=== PATIENT | female | born 1970 | race Caucasian/White ===

== ENCOUNTER 2024-05-22 10:28 | Outpatient (CLI) | payer BC, SELFPAY ==
--- NOTE | 2024-05-22 10:35 | XR_ITS ---
FINAL REPORT CLINICAL HISTORY: PAIN states hx of sprain. c/o right foot pain FINDINGS: Right foot Three views were obtained. There is a small ossific fragment measuring 3 mm in greatest dimension between proximal portions of the 1st and 2nd metatarsals. The donor site is unclear, likely chronic. Underlying Lisfranc injury is not entirely excluded. IMPRESSION: Small ossific fragment between the 1st and 2nd metatarsals, likely chronic. Underlying Lisfranc injury is not excluded. Reviewed, Interpreted and Dictated by Wade Humphrey MD Transcribed by Tia Billy Authenticated and [facility]
== END 2024-05-22 23:59 | disposition home or self-care (01) ==
LOC: RAD 10:32
PROVIDERS: PCP Physician Assistant; Visit Provider Physician Assistant
DX: M79.671 Pain in right foot (principal)
CPT/HCPCS: 73630

== ENCOUNTER 2024-05-29 15:30 | Outpatient (CLI) | payer BC, SELFPAY ==
--- NOTE | 2024-05-29 15:34 | XR_ITS ---
FINAL REPORT CLINICAL HISTORY: Foot Pain FINDINGS: Left foot Three views were obtained. There is no acute fracture or dislocation. There are minimal degenerative changes of the midfoot. Pes planus deformity is identified. No soft tissue abnormality is identified. IMPRESSION: No acute process. Reviewed, Interpreted and Dictated by Liz Chavis MD Transcribed by Tia Billy Authenticated and [facility]
--- NOTE | 2024-05-29 15:34 | XR_ITS ---
FINAL REPORT CLINICAL HISTORY: Ankle Pain FINDINGS: Right ankle Three views were obtained. There is no acute fracture or dislocation. Mild degenerative changes are present. No soft tissue abnormality is identified. IMPRESSION: No acute process. Reviewed, Interpreted and Dictated by Liz Chavis MD Transcribed by Tia Billy Authenticated and [facility]
--- NOTE | 2024-05-29 15:34 | XR_ITS ---
FINAL REPORT CLINICAL HISTORY: Foot Pain COMPARISON: 05/22/2024 FINDINGS: Right foot Three views were obtained. There is no acute fracture or dislocation. Pes planus deformity is identified. There are degenerative changes of the midfoot. Again identified is a small bony fragment along the lateral 1st metatarsal base. No soft tissue abnormality is identified. IMPRESSION: No significant change. Reviewed, Interpreted and Dictated by Liz Chavis MD Transcribed by Tia Billy Authenticated and [facility]
== END 2024-05-29 23:59 | disposition home or self-care (01) ==
LOC: RAD 15:32
PROVIDERS: PCP Physician Assistant; Visit Provider Podiatrist
DX: M79.671 Pain in right foot (principal); M79.672 Pain in left foot; M25.571 Pain in right ankle and joints of right foot
CPT/HCPCS: 73610; 73630

== ENCOUNTER 2024-06-19 10:41 | Outpatient (CLI) | payer BC, SELFPAY ==
--- NOTE | 2024-06-19 10:46 | XR_ITS ---
FINAL REPORT CLINICAL HISTORY: Ankle Pain FALL IN APRIL COMPARISON: 05/29/2024 FINDINGS: RIGHT ANKLE 3 views of the right ankle were obtained. There is no acute fracture or dislocation. The mortise is intact. Visualized joint spaces are normally aligned. Soft tissues are unremarkable. IMPRESSION: No acute bony abnormality. Reviewed, Interpreted and Dictated by Wade Humphrey MD Transcribed by Nguyen Interiano Authenticated and [facility]
--- NOTE | 2024-06-19 10:46 | XR_ITS ---
FINAL REPORT CLINICAL HISTORY: Foot Pain FALL IN APRIL COMPARISON: 05/29/2024 FINDINGS: RIGHT FOOT Three weightbearing views demonstrate no acute fracture or dislocation. The joint spaces appear normal. No acute soft tissue abnormality is seen. A mild pes planus deformity is noted. IMPRESSION: No acute bony abnormality. Reviewed, Interpreted and Dictated by Wade Humphrey MD Transcribed by Nguyen Interiano Authenticated and [facility]
== END 2024-06-19 23:59 | disposition home or self-care (01) ==
LOC: RAD 10:42
PROVIDERS: PCP Physician Assistant; Visit Provider Podiatrist
DX: M25.571 Pain in right ankle and joints of right foot (principal); M79.671 Pain in right foot
CPT/HCPCS: 73610; 73630